=== PATIENT | male | born 1935 | race Caucasian/White ===

== ENCOUNTER 2019-09-25 10:34 | Inpatient (IN) ==
[2019-09-25 11:25] LABS: Hematocrit 40 % (42-52); Hemoglobin 13.3 g/dL (14.0-18.0); Mean Corpuscular HGB Conc 34 g/dL (31-36); Mean Corpuscular Hemoglobin 31 pg (27-31); Mean Corpuscular Volume 94 fL (80-94); Mean Platelet Volume 8.4 fL (7.4-10.4); Platelet Count 240 10^3/uL (150-450); Red Blood Count 4.24 10^6 /uL (4.18-5.48); Red Cell Distribution Width 14 % (10-15); White Blood Count 8.8 10^3/uL (3.5-10.8)
[2019-09-25 11:50] LABS: Albumin 3.8 g/dL (3.2-5.2); Albumin/Globulin Ratio 1.2 (1-3); EGFR African American 27.9 (>60); EGFR Non-African American 23.1 (>60); Globulin 3.2 g/dL (2-4); Total Bilirubin 0.3 mg/dL (0.2-1.0)
[2019-09-25] MEDS ORDERED: HYDROcodone/ACETAMIN 5/325 mg TAB PO ONE (12:46)
[2019-09-25] MEDS ORDERED: Albuterol/Ipratropium NEB.SOL (2.5/0.5 MG) 3 ML NEB.SOLN INH PRN (18:10)
[2019-09-25] MEDS ORDERED: Senna TAB 8.6 mg TAB PO PRN (18:16)
[2019-09-25 21:44] LABS: TSH Ultra Thyroid Stim Horm 1.83 mcIU/mL (0.34-5.60)
[2019-09-25] MEDS: Enoxaparin 40 MG/0.4 ML SYR SUBCUT SCH (22:26)
[2019-09-26] MEDS: FLUTICASONE/UMECLIDIN/VILANTER 1 PUFF MDI INH SCH (08:50)
[2019-09-26] MEDS: Magnesium Hydroxide LIQ 30 ML UDC PO PRN (08:59)
[2019-09-26] MEDS: Aspirin EC 81 mg TAB.EC (enteric coated) PO SCH (08:59)
[2019-09-26] MEDS ORDERED: Senna TAB 8.6 mg TAB PO ONE (19:11)
[2019-09-26] MEDS: Enoxaparin 40 MG/0.4 ML SYR SUBCUT SCH (20:56)
[2019-09-27] MEDS: Aspirin EC 81 mg TAB.EC (enteric coated) PO SCH (08:01)
[2019-09-27] MEDS: FLUTICASONE/UMECLIDIN/VILANTER 1 PUFF MDI INH SCH (08:02)
[2019-09-27] MEDS: Magnesium Hydroxide LIQ 30 ML UDC PO PRN (08:06)
[2019-09-27 11:35] VITALS: BP 106/52
== END 2019-09-27 15:30 | disposition home health service (06) | DRG 536 ==
LOC: ED 10:34 → SSU 10:34
PROVIDERS: ADMIT Internal Medicine; ATTEND Internal Medicine

== ENCOUNTER 2021-12-30 10:41 | Inpatient (IN) ==
[2021-12-31] MEDS ORDERED: Senna TAB 8.6 mg TAB PO PRN (12:49)
[2022-01-01] MEDS: Aspirin EC 81 mg TAB.EC (enteric coated) PO SCH (08:20)
[2022-01-01] MEDS: Potassium Chlor 10 meq TAB PO SCH (08:20)
[2022-01-01] MEDS: CMCS: FLUTICAS/UMECLI/VILANT 100-62.5-25 MDI (NF) INH SCH (08:24)
[2022-01-01] MEDS: Heparin 5000 UNITS/ML 1 mL VIAL SUBCUT SCH ×2 (08:25→19:45)
[2022-01-01] MEDS: Albuterol HFA INHALER 8 gm MDI INH PRN (22:32)
[2022-01-02 07:44] LABS: ABS Basophils 0.1 10^3/ul (0-0.2); ABS Eosinophils 0.3 10^3/ul (0-0.6); ABS Lymphocytes 0.7 10^3/ul (1.0-4.8); ABS Monocytes 0.5 10^3/ul (0-0.8); ABS Neutrophils 4.7 10^3/ul (1.5-7.7); Eosinophil % 4.9 %; Hematocrit 30 % (42-52); Hemoglobin 9.6 g/dL (14.0-18.0); Lymphocyte % 11.4 %; Mean Corpuscular HGB Conc 32 g/dL (31-36); Mean Corpuscular Hemoglobin 29 pg (27-31); Mean Corpuscular Volume 93 fL (80-94); Mean Platelet Volume 8.4 fL (7.4-10.4); Platelet Count 216 10^3/uL (150-450); Red Blood Count 3.28 10^6 /uL (4.18-5.48); Red Cell Distribution Width 15 % (10-15); White Blood Count 6.3 10^3/uL (3.5-10.8)
[2022-01-02 07:44] LABS: Albumin 3.1 g/dL (3.2-5.2); CO2 Carbon Dioxide 19 mmol/L (22-32); Calcium 9.2 mg/dL (8.6-10.3); Chloride 108 mmol/L (101-111); Sodium 142 mmol/L (135-145)
[2022-01-02 07:45] LABS: Anion Gap 15 mmol/L (2-11)
[2022-01-02 08:32] LABS: Albumin 3.4 g/dL (3.2-5.2); Albumin/Globulin Ratio 1.2 (1-3); Calcium 9.6 mg/dL (8.6-10.3); Globulin 2.9 g/dL (2-4); Total Bilirubin 0.4 mg/dL (0.2-1.0); Total Protein 6.3 g/dL (6.4-8.9); eGFR CKD-EPI 14.3 (>60)
[2022-01-02] MEDS: Aspirin EC 81 mg TAB.EC (enteric coated) PO SCH (09:19)
[2022-01-02] MEDS: CMCS: FLUTICAS/UMECLI/VILANT 100-62.5-25 MDI (NF) INH SCH (09:19)
[2022-01-02] MEDS: Heparin 5000 UNITS/ML 1 mL VIAL SUBCUT SCH ×2 (09:21→20:22)
[2022-01-02] MEDS: Potassium Chlor 10 meq TAB PO SCH (09:21)
[2022-01-02] MEDS: Albuterol HFA INHALER 8 gm MDI INH PRN (20:19)
[2022-01-03] MEDS: Aspirin EC 81 mg TAB.EC (enteric coated) PO SCH (07:30)
[2022-01-03] MEDS: Potassium Chlor 10 meq TAB PO SCH (07:30)
[2022-01-03] MEDS: Heparin 5000 UNITS/ML 1 mL VIAL SUBCUT SCH ×2 (07:30→19:00)
[2022-01-03] MEDS: CMCS: FLUTICAS/UMECLI/VILANT 100-62.5-25 MDI (NF) INH SCH (07:39)
[2022-01-04] MEDS: Potassium Chlor 10 meq TAB PO SCH (08:56)
[2022-01-04] MEDS: Aspirin EC 81 mg TAB.EC (enteric coated) PO SCH (08:56)
[2022-01-04] MEDS: Heparin 5000 UNITS/ML 1 mL VIAL SUBCUT SCH ×2 (08:59→19:59)
[2022-01-04] MEDS: CMCS: FLUTICAS/UMECLI/VILANT 100-62.5-25 MDI (NF) INH SCH (08:59)
[2022-01-04] MEDS: Albuterol HFA INHALER 8 gm MDI INH PRN ×2 (14:43→21:36)
[2022-01-05] MEDS: Heparin 5000 UNITS/ML 1 mL VIAL SUBCUT SCH ×2 (09:24→21:41)
[2022-01-05] MEDS: Potassium Chlor 10 meq TAB PO SCH (09:26)
[2022-01-05] MEDS: Aspirin EC 81 mg TAB.EC (enteric coated) PO SCH (09:26)
[2022-01-05] MEDS: CMCS: FLUTICAS/UMECLI/VILANT 100-62.5-25 MDI (NF) INH SCH (09:29)
[2022-01-05] MEDS ORDERED: Magnesium Hydroxide LIQ 30 ML UDC PO PRN (12:47)
[2022-01-05] MEDS: Albuterol HFA INHALER 8 gm MDI INH PRN (21:44)
[2022-01-06] MEDS: Aspirin EC 81 mg TAB.EC (enteric coated) PO SCH (09:12)
[2022-01-06] MEDS: Heparin 5000 UNITS/ML 1 mL VIAL SUBCUT SCH ×2 (09:12→20:17)
[2022-01-06] MEDS: Potassium Chlor 10 meq TAB PO SCH (09:12)
[2022-01-06] MEDS: CMCS: FLUTICAS/UMECLI/VILANT 100-62.5-25 MDI (NF) INH SCH (09:13)
[2022-01-07 04:46] VITALS: BP 143/67
[2022-01-07 08:09] LABS: Albumin 3.5 g/dL (3.2-5.2); Albumin/Globulin Ratio 1.3 (1-3); Calcium 9.8 mg/dL (8.6-10.3); Globulin 2.8 g/dL (2-4); Potassium 4.2 mmol/L (3.5-5.0); Total Bilirubin 0.3 mg/dL (0.2-1.0); Total Protein 6.3 g/dL (6.4-8.9); eGFR CKD-EPI 17.6 (>60)
[2022-01-07] MEDS: Aspirin EC 81 mg TAB.EC (enteric coated) PO SCH (08:52)
[2022-01-07] MEDS: Potassium Chlor 10 meq TAB PO SCH (08:52)
[2022-01-07] MEDS: Heparin 5000 UNITS/ML 1 mL VIAL SUBCUT SCH (08:53)
[2022-01-07] MEDS: CMCS: FLUTICAS/UMECLI/VILANT 100-62.5-25 MDI (NF) INH SCH (08:53)
== END 2022-01-07 12:30 | disposition home health service (06) | DRG 57 ==
LOC: PMRU 12-31 12:01
PROVIDERS: ADMIT Physical Medicine & Rehabilitation; ATTEND Physical Medicine & Rehabilitation